=== PATIENT | female | born 1960 | race Caucasian/White ===

== ENCOUNTER 2017-10-01 11:26 | Inpatient (IN) | payer OTHER ==
[~2017-10-01] VITALS: Ht 165.1 cm; Wt 84.4 kg
[2017-10-01 13:16] LABS: BASOPHILS % 0.8 % (0.0-2.0); EOSINOPHILS % 1.2 % (0.0-5.0); HEMOGLOBIN. 10.7 g/dL (12.0-16.0); LYMPHOCYTES % 21.9 % (20.0-50.0); MEAN CORPUSCULAR HEMOGLOBIN 27.6 pg (28.0-32.0); MEAN CORPUSCULAR VOLUME 84.8 fL (81.0-99.0); MEAN PLATELET VOLUME 7.5 fl (7.4-10.4); MONOCYTES % 6.7 % (2.0-8.0); NEUTROPHILS % 69.4 % (40.0-76.0); PLATELET 454 x1000/uL (130-400); RED BLOOD CELL COUNT 3.89 mill/uL (4.2-5.4); RED CELL DISTRIBUTION WIDTH 13.4 % (11.6-14.6)
[2017-10-01 13:23] LABS: CHLORIDE 103 mEq/L (98-107)
[2017-10-01 13:24] LABS: INR 1.1; PROTHROMBIN TIME 11.2 sec (9.4-11.6)
[2017-10-01 13:31] LABS: CARBON DIOXIDE 26 mEq/L (21-32)
[2017-10-01 14:23] LABS: CLARITY URINE CLOUDY (CLEAR); COLOR URINE YELLOW (YELLOW); GLUCOSE URINE NEGATIVE (NEGATIVE); KETONES URINE 1+ (NEGATIVE); LEUKOCYTE ESTERASE URINE TRACE (NEGATIVE); NITRITE URINE NEGATIVE (NEGATIVE); OCCULT BLOOD URINE 3+ (NEGATIVE); PH URINE 5.5 (4.5-8.0); PROTEIN URINE 1+ (NEGATIVE); SPECIFIC GRAVITY URINE 1.026 (1.005-1.030)
[2017-10-01] MEDS ORDERED: CLONIDINE 0.1MG TABLET PO PRN (16:00)
[2017-10-01] MEDS ORDERED: LORAZEPAM 2MG/ML CPJ IV PRN (16:00)
[2017-10-01] MEDS ORDERED: HYDROCODONE/ACETAMINOPHEN 5/325MG TABLET PO PRN (16:00)
[2017-10-01] MEDS ORDERED: MORPHINE SULFATE 4 MG/ML CPJ (NOT FOR IM USE) IV PRN (16:00)
[2017-10-01] MEDS ORDERED: ONDANSETRON HCL 4MG/2ML VIAL IV PRN (16:00)
[2017-10-01] MEDS ORDERED: IOHEXOL-300 100 ML BOTTLE ONE (16:04)
[2017-10-01 17:35] LABS: *AMPHETAMINES SCREEN URINE NEGATIVE (NEGATIVE); *BARBITURATES SCREEN URINE NEGATIVE (NEGATIVE); *BENZODIAZEPINES SCREEN URINE NEGATIVE (NEGATIVE); *COCAINE SCREEN URINE NEGATIVE (NEGATIVE); CANNABINOID URINE SCREEN NEGATIVE (NEGATIVE); METHADONE URINE SCREEN NEGATIVE (NEGATIVE); OPIATES URINE SCREEN NEGATIVE (NEGATIVE); PHENCYCLIDINE URINE SCREEN NEGATIVE (NEGATIVE)
[2017-10-01 23:04] VITALS: BP 132/72
[2017-10-01 23:12] VITALS: BP 132/72
[2017-10-02] VITALS: BP 126/75
[2017-10-02 04:00] VITALS: BP 144/78
[2017-10-02 08:00] VITALS: BP 121/90
[2017-10-02] MEDS: THIAMINE HCL 100MG TABLET PO SCH (08:09)
[2017-10-02] MEDS: FERROUS SULFATE 325MG TABLET PO SCH (08:09)
[2017-10-02] MEDS: CEFTRIAXONE 1 G PREMIX 50 ML IV SCH (11:48)
[2017-10-02 12:00] VITALS: BP 112/77
[2017-10-02 12:46] LABS: BASOPHILS % 0.3 % (0.0-2.0); EOSINOPHILS % 0.4 % (0.0-5.0); HEMATOCRIT. 33.8 % (36.0-48.0); HEMOGLOBIN. 11.2 g/dL (12.0-16.0); LYMPHOCYTES % 11.3 % (20.0-50.0); MEAN CORPUSCULAR HEMOGLOBIN 27.8 pg (28.0-32.0); MEAN CORPUSCULAR VOLUME 84.1 fL (81.0-99.0); MONOCYTES % 8.4 % (2.0-8.0); NEUTROPHILS % 79.6 % (40.0-76.0); PLATELET 482 x1000/uL (130-400); RED BLOOD CELL COUNT 4.02 mill/uL (4.2-5.4); RED CELL DISTRIBUTION WIDTH 13.5 % (11.6-14.6)
[2017-10-02 13:05] LABS: CARBON DIOXIDE 28 mEq/L (21-32); CHLORIDE 101 mEq/L (98-107)
[2017-10-02] MEDS ORDERED: LIDOCAINE HCL 1% 20ML VIAL (Pyxis) INJ ONE (14:50)
[2017-10-02] MEDS ORDERED: SODIUM BICARBONATE 4% (2.4MEQ) 5ML VIAL IV ONE (14:51)
[2017-10-02 16:00] VITALS: BP 137/78
[2017-10-02 20:00] VITALS: BP 109/72
[2017-10-03] VITALS: BP 112/68
[2017-10-03 04:00] VITALS: BP 105/65
[2017-10-03 07:32] VITALS: BP 113/68
[2017-10-03 07:51] LABS: BASOPHILS % 0.4 % (0.0-2.0); EOSINOPHILS % 1.6 % (0.0-5.0); HEMATOCRIT. 35.4 % (36.0-48.0); HEMOGLOBIN. 11.6 g/dL (12.0-16.0); LYMPHOCYTES % 18.8 % (20.0-50.0); MEAN CORPUSCULAR HEMOGLOBIN 27.4 pg (28.0-32.0); MEAN CORPUSCULAR VOLUME 83.9 fL (81.0-99.0); MEAN PLATELET VOLUME 8.1 fl (7.4-10.4); NEUTROPHILS % 71.2 % (40.0-76.0); PLATELET 486 x1000/uL (130-400); RED BLOOD CELL COUNT 4.22 mill/uL (4.2-5.4); RED CELL DISTRIBUTION WIDTH 13.7 % (11.6-14.6)
[2017-10-03] MEDS: FERROUS SULFATE 325MG TABLET PO SCH (08:21)
[2017-10-03] MEDS: THIAMINE HCL 100MG TABLET PO SCH (08:21)
[2017-10-03 08:32] LABS: CHLORIDE 104 mEq/L (98-107)
[2017-10-03 09:01] LABS: CARBON DIOXIDE 23 mEq/L (21-32); PHOSPHORUS 3.4 mg/dL (2.5-4.9)
[2017-10-03] MEDS: CEFTRIAXONE 1 G PREMIX 50 ML IV SCH (12:05)
[2017-10-03 12:13] VITALS: BP 119/80
[2017-10-03 19:06] VITALS: BP 119/80
== END 2017-10-03 19:40 | disposition home or self-care (01) | DRG 755 ==
LOC: ER 13:42 → 6EST 15:44 → ENRESERV 18:49 → SUPCPDRO 19:11 → 8WST 22:30
PROVIDERS: ADMIT Internal Medicine Nephrology; ATTEND Internal Medicine Nephrology
PROC: 0W9G3ZZ Drainage of Peritoneal Cavity, Percutaneous Approach (ICD-10-PCS; principal; 2017-10-02)
PROC: 0W9B30Z Drainage of Left Pleural Cavity with Drainage Device, Percutaneous Approach (ICD-10-PCS; 2017-10-03)
DX: C56.1 Malignant neoplasm of right ovary (principal); N39.0 Urinary tract infection, site not specified; J90 Pleural effusion, not elsewhere classified; C78.7 Secondary malignant neoplasm of liver and intrahepatic bile duct; E27.8 Other specified disorders of adrenal gland; R18.8 Other ascites; E44.1 Mild protein-calorie malnutrition; J98.11 Atelectasis; D64.9 Anemia, unspecified; N83.9 Noninflammatory disorder of ovary, fallopian tube and broad ligament, unspecified; M19.90 Unspecified osteoarthritis, unspecified site; R14.0 Abdominal distension (gaseous); Z68.31 Body mass index [BMI] 31.0-31.9, adult
CPT/HCPCS: 32555; 36415; 49083; 71010; 74177; 80048; 80053; 80305; 81001; 83605; 83690; 83735; 84100; 85025; 85610; 86304; 87070; 87205; 88108; 88312; 99285; J0696; J3490; J7040; Q9967

== ENCOUNTER 2018-12-21 16:10 | Emergency (ER) | payer OTHER ==
[~2018-12-21] VITALS: Ht 165.1 cm; Wt 75.5 kg
[2018-12-21] MEDS ORDERED: TRAMADOL 50MG TABLET PO ONE (19:30)
[2018-12-21 21:35] VITALS: BP 141/79
== END 2018-12-21 21:49 | disposition home or self-care (01) ==
LOC: ER 16:10
DX: M79.652 Pain in left thigh (principal); Z85.43 Personal history of malignant neoplasm of ovary
CPT/HCPCS: 73502; 93971; 99284

== ENCOUNTER 2019-03-19 14:52 | Inpatient (IN) | payer OTHER ==
[~2019-03-19] VITALS: Ht 162.6 cm; Wt 81.6 kg
[2019-03-19] VITALS (29 sets, daily range): BP systolic 87–132; BP diastolic 50–88
[2019-03-19] MEDS ORDERED: SODIUM CHLORIDE 0.9% 1,000 ML IV ONE (15:01)
[2019-03-19 15:18] LABS: BG CARBOXYHEMOGLOBIN 0.3 % (0.5-1.5); BG HCO3 ACT 14.3 mmol/L (22.0-26.0); BG METHEMOGLOBIN 0.6 % (0.0-1.5); BG OXYHEMOGLOBIN 97.1 % (94.0-97.0); BG PCO2 17.7 mmHg (35.0-45.0); BG PH 7.525 (7.350-7.450); BG PO2 110.7 mmHg (75.0-100.0); BG SAMPLE SITE RIGHT RADIAL; BG VENT MODE ROOM AIR
[2019-03-19 15:25] LABS: CHLORIDE 103 mEq/L (98-107)
[2019-03-19 15:27] LABS: BASOPHILS % 0.2 % (0.0-2.0); LYMPHOCYTES % 71.4 % (20.0-50.0); MEAN CORPUSCULAR HEMOGLOBIN 31.4 pg (28.0-32.0); MEAN CORPUSCULAR VOLUME 97.6 fL (81.0-99.0); MEAN PLATELET VOLUME 9.7 fl (7.4-10.4); MONOCYTES % 1.3 % (2.0-8.0); NEUTROPHILS % 27.1 % (40.0-76.0); RED CELL DISTRIBUTION WIDTH 21.4 % (11.6-14.6)
[2019-03-19 15:28] LABS: INR 1.2; PROTHROMBIN TIME 12.1 sec (9.6-11.0)
[2019-03-19 15:32] LABS: HEMATOCRIT. 14.7 % (36.0-48.0); HEMOGLOBIN. 4.7 g/dL (12.0-16.0)
[2019-03-19 16:06] LABS: PLATELET 7 x1000/uL (130-400)
[2019-03-19] MEDS ORDERED: ACETAMINOPHEN 325MG SUPP PR ONE (16:26)
[2019-03-19] MEDS ORDERED: DIPHENHYDRAMINE 50MG/ML VIAL IV ONE (16:26)
[2019-03-19] MEDS ORDERED: IPRATROPIUM/ALBUTEROL 0.5-3(2.5)MG/3ML NEB HHN PRN (17:00)
[2019-03-19] MEDS ORDERED: CLONIDINE 0.1MG TABLET PO PRN (17:45)
[2019-03-19] MEDS ORDERED: DOCUSATE SODIUM 100MG CAPSULE PO PRN (17:45)
[2019-03-19] MEDS ORDERED: GUAIFENESIN 200MG/10ML SUGAR FREE UDC PO PRN (17:45)
[2019-03-19] MEDS ORDERED: MAGNESIUM/ALUMINUM HYDROXIDE/SIMETHICONE 30ML UDC PO PRN (17:45)
[2019-03-19 17:46] LABS: D-DIMER 5.22 mg/L FEU (<0.50)
[2019-03-19] MEDS ORDERED: ACETAMINOPHEN 325MG SUPP PR NR ×2 (18:15→22:15)
[2019-03-19 18:38] LABS: PHOSPHORUS 4.2 mg/dL (2.5-4.9)
[2019-03-19] MEDS ORDERED: DEXTROSE 50% WATER 50ML SYRINGE IV PRN (19:15)
[2019-03-19] MEDS ORDERED: PHENYLEPHRINE HCL 1% 15 ML NASAL SPRAY BOTHNSTRLS PRN (20:00)
[2019-03-19] MEDS: INSULIN LISPRO 100 UNITS/ML SUBCUT SCH (21:00)
[2019-03-19] MEDS: BLOOD SUGAR DIAGNOSTIC STRIP TEST SCH (21:01)
[2019-03-19] MEDS: PANTOPRAZOLE SODIUM 40 MG/VIAL IV SCH (21:02)
[2019-03-19] MEDS: METRONIDAZOLE 500 MG PREMIX 100 ML IV SCH (21:41)
[2019-03-19] MEDS ORDERED: ACETAMINOPHEN 650MG SUPP PR NR (22:00)
[2019-03-19] MEDS: DIPHENHYDRAMINE 50MG/ML VIAL IV PRN (23:07)
[2019-03-19] MEDS: MAGIC MOUTHWASH PO SCH (23:51)
[2019-03-20] VITALS (103 sets, daily range): BP systolic 48–125; BP diastolic 33–88
[2019-03-20] MEDS ORDERED: NON FORMULARY PATIENT HOME MED PO SCH
[2019-03-20 02:15] LABS: MEAN CORPUSCULAR HEMOGLOBIN 30.5 pg (28.0-32.0); MEAN CORPUSCULAR VOLUME 88.4 fL (81.0-99.0); MEAN PLATELET VOLUME 6.7 fl (7.4-10.4); PLATELET 62 x1000/uL (130-400); RED BLOOD CELL COUNT 2.08 mill/uL (4.2-5.4); RED CELL DISTRIBUTION WIDTH 16.5 % (11.6-14.6)
[2019-03-20 02:23] LABS: HEMATOCRIT. 18.4 % (36.0-48.0); HEMOGLOBIN. 6.4 g/dL (12.0-16.0)
[2019-03-20 04:39] LABS: PLATELET ESTIMATE DECREASED
[2019-03-20] MEDS: METRONIDAZOLE 500 MG PREMIX 100 ML IV SCH ×3 (04:40→21:47)
[2019-03-20] MEDS: DIPHENHYDRAMINE 50MG/ML VIAL IV PRN ×3 (04:40→22:08)
[2019-03-20] MEDS: MAGIC MOUTHWASH PO SCH ×3 (05:03→18:24)
[2019-03-20] MEDS: INSULIN LISPRO 100 UNITS/ML SUBCUT SCH ×4 (05:47→21:00)
[2019-03-20] MEDS: BLOOD SUGAR DIAGNOSTIC STRIP TEST SCH ×4 (05:47→21:00)
[2019-03-20 05:55] LABS: MEAN CORPUSCULAR HEMOGLOBIN 30.4 pg (28.0-32.0); MEAN CORPUSCULAR VOLUME 89.3 fL (81.0-99.0); MEAN PLATELET VOLUME 7.6 fl (7.4-10.4); PLATELET 62 x1000/uL (130-400); RED BLOOD CELL COUNT 2.01 mill/uL (4.2-5.4); RED CELL DISTRIBUTION WIDTH 16.4 % (11.6-14.6)
[2019-03-20 06:04] LABS: INR 1.1; PROTHROMBIN TIME 10.9 sec (9.6-11.0)
[2019-03-20 06:11] LABS: CHLORIDE 108 mEq/L (98-107)
[2019-03-20 06:20] LABS: HDL CHOLESTEROL 28 mg/dL (40-59); LDL CHOLESTEROL 70 mg/dL (5-100)
[2019-03-20 06:23] LABS: HEMOGLOBIN. 6.1 g/dL (12.0-16.0)
[2019-03-20 07:32] LABS: PLATELET ESTIMATE DECREASED
[2019-03-20] MEDS: PANTOPRAZOLE SODIUM 40 MG/VIAL IV SCH ×2 (08:46→21:00)
[2019-03-20 09:23] LABS: HEMATOCRIT. 23.8 % (36.0-48.0); HEMOGLOBIN. 7.9 g/dL (12.0-16.0); MEAN CORPUSCULAR HEMOGLOBIN 28.2 pg (28.0-32.0); MEAN CORPUSCULAR VOLUME 84.7 fL (81.0-99.0); MEAN PLATELET VOLUME 7.4 fl (7.4-10.4); RED BLOOD CELL COUNT 2.81 mill/uL (4.2-5.4); RED CELL DISTRIBUTION WIDTH 18.1 % (11.6-14.6)
[2019-03-20 09:29] LABS: PLATELET 48 x1000/uL (130-400)
[2019-03-20 09:42] LABS: PLATELET ESTIMATE MARKEDLY DECREASED
[2019-03-20] MEDS ORDERED: ONDA4TAB5 MT (10:12)
[2019-03-20 10:25] LABS: PLATELET ESTIMATE MARKEDLY DECREASED
[2019-03-20] MEDS ORDERED: MULTIVITAMINS,THER W-MINERALS TABLET PO SCH ×2 (11:15→12:00)
[2019-03-20] MEDS ORDERED: FOLIC ACID 1MG TABLET PO SCH ×2 (11:15→12:00)
[2019-03-20] MEDS ORDERED: ZINC SULFATE 220 MG ( 50 ) CAPSULE PO SCH (11:15)
[2019-03-20] MEDS ORDERED: THIAMINE HCL 100MG TABLET PO SCH (12:00)
[2019-03-20] MEDS: ZINC SULFATE 220 MG ( 50 ) CAPSULE PO SCH (12:36)
[2019-03-20] MEDS: ONDANSETRON HCL 4MG/2ML INJ IV PRN (12:49)
[2019-03-20] MEDS: ACETAMINOPHEN 650MG/20.3ML UDC PO PRN ×2 (14:58→22:08)
[2019-03-20 20:32] LABS: HEMATOCRIT 17.7 % (36.0-48.0)
[2019-03-21] VITALS (86 sets, daily range): BP systolic 101–154; BP diastolic 50–135
[2019-03-21] MEDS: MAGIC MOUTHWASH PO SCH ×4 (00:14→17:30)
[2019-03-21] MEDS: METRONIDAZOLE 500 MG PREMIX 100 ML IV SCH ×3 (05:38→21:51)
[2019-03-21 06:09] LABS: HEMATOCRIT. 21.4 % (36.0-48.0); HEMOGLOBIN. 7.4 g/dL (12.0-16.0); MEAN CORPUSCULAR HEMOGLOBIN 30.2 pg (28.0-32.0); MEAN PLATELET VOLUME 7.7 fl (7.4-10.4); PLATELET 65 x1000/uL (130-400); RED BLOOD CELL COUNT 2.46 mill/uL (4.2-5.4); RED CELL DISTRIBUTION WIDTH 16.5 % (11.6-14.6)
[2019-03-21] MEDS: BLOOD SUGAR DIAGNOSTIC STRIP TEST SCH ×4 (06:18→20:47)
[2019-03-21] MEDS: INSULIN LISPRO 100 UNITS/ML SUBCUT SCH ×4 (06:18→20:47)
[2019-03-21 07:58] LABS: PLATELET ESTIMATE DECREASED
[2019-03-21] MEDS: PANTOPRAZOLE SODIUM 40 MG/VIAL IV SCH (08:40)
[2019-03-21] MEDS: ZINC SULFATE 220 MG ( 50 ) CAPSULE PO SCH (08:40)
[2019-03-21] MEDS ORDERED: THIAMINE HCL IV SCH (09:00)
[2019-03-21] MEDS ORDERED: [UNRECOGNIZED DRUG - OTHER] IV SCH (09:00)
[2019-03-21] MEDS ORDERED: MAGNESIUM SULFATE IV SCH (09:00)
[2019-03-21] MEDS ORDERED: FOLIC ACID IV SCH (09:00)
[2019-03-21] MEDS ORDERED: [UNRECOGNIZED DRUG - REMARK] IV SCH ×5 (09:15)
[2019-03-21] MEDS: [UNRECOGNIZED DRUG - REMARK] IV SCH ×5 (09:53)
[2019-03-21] MEDS: SODIUM CHLORIDE 0.9% 1,000 ML IV SCH (13:18)
[2019-03-21 16:06] LABS: MEAN CORPUSCULAR HEMOGLOBIN 29.7 pg (28.0-32.0); MEAN CORPUSCULAR VOLUME 86.5 fL (81.0-99.0); RED BLOOD CELL COUNT 2.22 mill/uL (4.2-5.4); RED CELL DISTRIBUTION WIDTH 16.4 % (11.6-14.6)
[2019-03-21 16:15] LABS: HEMOGLOBIN 6.6 g/dL (12.0-16.0)
[2019-03-21 16:16] LABS: HEMATOCRIT 19.2 % (36.0-48.0); PLATELET 48 x1000/uL (130-400)
[2019-03-21] MEDS: DIPHENHYDRAMINE 50MG/ML VIAL IV PRN (17:35)
[2019-03-21] MEDS: ACETAMINOPHEN 650MG/20.3ML UDC PO PRN (17:35)
[2019-03-21] MEDS: FILGRASTIM-TBO 480 MCG/0.8 ML SYRINGE SQ SCH (21:51)
[2019-03-21 22:43] LABS: HEMATOCRIT 24.6 % (36.0-48.0); HEMOGLOBIN 8.4 g/dL (12.0-16.0); MEAN CORPUSCULAR HEMOGLOBIN 30.2 pg (28.0-32.0); MEAN CORPUSCULAR VOLUME 88.3 fL (81.0-99.0); RED BLOOD CELL COUNT 2.78 mill/uL (4.2-5.4); RED CELL DISTRIBUTION WIDTH 15.6 % (11.6-14.6)
[2019-03-21 22:45] LABS: PLATELET 45 x1000/uL (130-400)
[2019-03-22] VITALS (86 sets, daily range): BP systolic 89–144; BP diastolic 43–96
[2019-03-22] MEDS: MAGIC MOUTHWASH PO SCH ×4 (00:07→17:35)
[2019-03-22] MEDS: METRONIDAZOLE 500 MG PREMIX 100 ML IV SCH ×3 (06:02→22:48)
[2019-03-22] MEDS: SODIUM CHLORIDE 0.9% 1,000 ML IV SCH ×2 (06:02→20:06)
[2019-03-22] MEDS: INSULIN LISPRO 100 UNITS/ML SUBCUT SCH ×4 (06:03→21:00)
[2019-03-22] MEDS: BLOOD SUGAR DIAGNOSTIC STRIP TEST SCH ×4 (06:03→21:00)
[2019-03-22 06:38] LABS: HEMATOCRIT. 22.5 % (36.0-48.0); HEMOGLOBIN. 7.7 g/dL (12.0-16.0); MEAN CORPUSCULAR HEMOGLOBIN 29.9 pg (28.0-32.0); MEAN CORPUSCULAR VOLUME 87.2 fL (81.0-99.0); MEAN PLATELET VOLUME 8.3 fl (7.4-10.4); PLATELET 89 x1000/uL (130-400); RED BLOOD CELL COUNT 2.58 mill/uL (4.2-5.4); RED CELL DISTRIBUTION WIDTH 15.3 % (11.6-14.6)
[2019-03-22 06:41] LABS: PARTIAL THROMBOPLASTIN TIME 24.9 sec (23.4-31.0); PROTHROMBIN TIME 10.7 sec (9.6-11.0)
[2019-03-22 07:07] LABS: CHLORIDE 110 mEq/L (98-107)
[2019-03-22 07:18] LABS: T4 FREE 1.56 ng/dL (0.76-1.46)
[2019-03-22] MEDS ORDERED: LIDOCAINE HCL 1% 20ML VIAL (Pyxis) INJ ONE (07:21)
[2019-03-22] MEDS ORDERED: SODIUM BICARBONATE 4% (2.4MEQ) 5ML VIAL IV ONE (07:21)
[2019-03-22] MEDS ORDERED: IOHEXOL-300 100 ML BOTTLE ONE (07:22)
[2019-03-22 08:37] LABS: NUCLEATED RED BLOOD CELLS 2 /100 WBC
[2019-03-22 08:38] LABS: PLATELET ESTIMATE DECREASED
[2019-03-22] MEDS ORDERED: POTASSIUM CHLORIDE 20MEQ TABLET SR PO NR (08:45)
[2019-03-22] MEDS ORDERED: FENTANYL CITRATE/PF 50MCG/ML 2ML VIAL ONE (09:18)
[2019-03-22] MEDS ORDERED: FENTANYL CITRATE/PF 50MCG/ML 2ML VIAL IV ONE (09:45)
[2019-03-22 10:42] LABS: CLARITY URINE CLEAR (CLEAR); COLOR URINE YELLOW (YELLOW); KETONES URINE NEGATIVE (NEGATIVE); LEUKOCYTE ESTERASE URINE NEGATIVE (NEGATIVE); NITRITE URINE NEGATIVE (NEGATIVE); OCCULT BLOOD URINE NEGATIVE (NEGATIVE); PH URINE 5.5 (4.5-8.0); PROTEIN URINE NEGATIVE (NEGATIVE); SPECIFIC GRAVITY URINE 1.022 (1.005-1.030); UROBILINOGEN URINE 0.2 E.U./dL (0.2-1.0)
[2019-03-22] MEDS: ZINC SULFATE 220 MG ( 50 ) CAPSULE PO SCH (10:47)
[2019-03-22] MEDS: [UNRECOGNIZED DRUG - REMARK] IV SCH ×5 (10:48)
[2019-03-22] MEDS: ACETAMINOPHEN 650MG/20.3ML UDC PO PRN (10:58)
[2019-03-22] MEDS: HYDROMORPHONE HCL/PF 2MG/ML CPJ IV PRN ×3 (11:29→23:40)
[2019-03-22] MEDS ORDERED: POTASSIUM CHLORIDE INJ 40 MEQ in DEXT 5% WATER 250 ML IV NR (12:45)
[2019-03-22] MEDS: DIPHENHYDRAMINE 50MG/ML VIAL IV PRN (13:48)
[2019-03-22] MEDS: ONDANSETRON HCL 4MG/2ML INJ IV PRN ×2 (14:02→20:06)
[2019-03-22] MEDS: FILGRASTIM-TBO 480 MCG/0.8 ML SYRINGE SQ SCH (20:07)
[2019-03-23] VITALS (82 sets, daily range): BP systolic 96–142; BP diastolic 33–89
[2019-03-23] MEDS: MAGIC MOUTHWASH PO SCH ×4 (00:11→17:30)
[2019-03-23] MEDS: HYDROMORPHONE HCL/PF 2MG/ML CPJ IV PRN ×4 (02:03→17:31)
[2019-03-23] MEDS: ONDANSETRON HCL 4MG/2ML INJ IV PRN ×3 (02:04→17:31)
[2019-03-23 05:12] LABS: HEMATOCRIT. 22.4 % (36.0-48.0); HEMOGLOBIN. 7.7 g/dL (12.0-16.0); MEAN CORPUSCULAR HEMOGLOBIN 30.3 pg (28.0-32.0); MEAN CORPUSCULAR VOLUME 88.4 fL (81.0-99.0); MEAN PLATELET VOLUME 8.1 fl (7.4-10.4); PLATELET 60 x1000/uL (130-400); RED BLOOD CELL COUNT 2.53 mill/uL (4.2-5.4); RED CELL DISTRIBUTION WIDTH 15.4 % (11.6-14.6)
[2019-03-23 05:47] LABS: CHLORIDE 113 mEq/L (98-107)
[2019-03-23] MEDS: METRONIDAZOLE 500 MG PREMIX 100 ML IV SCH (05:53)
[2019-03-23 05:56] LABS: PHOSPHORUS 2.3 mg/dL (2.5-4.9)
[2019-03-23] MEDS: INSULIN LISPRO 100 UNITS/ML SUBCUT SCH ×4 (06:46→21:00)
[2019-03-23] MEDS: BLOOD SUGAR DIAGNOSTIC STRIP TEST SCH ×4 (06:46→21:13)
[2019-03-23] MEDS: [UNRECOGNIZED DRUG - REMARK] IV SCH ×5 (09:09)
[2019-03-23] MEDS: ZINC SULFATE 220 MG ( 50 ) CAPSULE PO SCH (09:09)
[2019-03-23] MEDS ORDERED: POTASSIUM-SODIUM PHOSPHATE POWDER PACKET PO NR (11:30)
[2019-03-23 12:05] LABS: PLATELET ESTIMATE DECREASED
[2019-03-23] MEDS: DIPHENHYDRAMINE 50MG/ML VIAL IV PRN ×2 (12:19→17:32)
[2019-03-23] MEDS ORDERED: SODIUM BICARBONATE 4% (2.4MEQ) 5ML VIAL IV ONE (13:15)
[2019-03-23] MEDS: [UNRECOGNIZED DRUG - REMARK] IV SCH ×5 (15:48)
[2019-03-23] MEDS: FILGRASTIM-TBO 480 MCG/0.8 ML SYRINGE SQ SCH (21:13)
[2019-03-24] VITALS (102 sets, daily range): BP systolic 92–159; BP diastolic 50–98
[2019-03-24] MEDS: HYDROMORPHONE HCL/PF 2MG/ML CPJ IV PRN ×4 (00:02→23:38)
[2019-03-24] MEDS: ONDANSETRON HCL 4MG/2ML INJ IV PRN ×4 (00:03→23:36)
[2019-03-24] MEDS: MAGIC MOUTHWASH PO SCH ×4 (02:52→18:54)
[2019-03-24 05:37] LABS: MEAN CORPUSCULAR HEMOGLOBIN 29.9 pg (28.0-32.0); MEAN CORPUSCULAR VOLUME 89.3 fL (81.0-99.0); MEAN PLATELET VOLUME 8.6 fl (7.4-10.4); RED BLOOD CELL COUNT 2.29 mill/uL (4.2-5.4); RED CELL DISTRIBUTION WIDTH 15.2 % (11.6-14.6)
[2019-03-24 05:45] LABS: CHLORIDE 110 mEq/L (98-107)
[2019-03-24 05:52] LABS: PHOSPHORUS 1.9 mg/dL (2.5-4.9)
[2019-03-24] MEDS: BLOOD SUGAR DIAGNOSTIC STRIP TEST SCH ×4 (06:13→20:43)
[2019-03-24] MEDS: INSULIN LISPRO 100 UNITS/ML SUBCUT SCH ×4 (06:13→20:50)
[2019-03-24 06:28] LABS: HEMATOCRIT. 20.4 % (36.0-48.0); HEMOGLOBIN. 6.8 g/dL (12.0-16.0)
[2019-03-24] MEDS ORDERED: KCL 20MEQ/100ML PREMIX 100 ML IV NR (08:00)
[2019-03-24] MEDS: ZINC SULFATE 220 MG ( 50 ) CAPSULE PO SCH (08:56)
[2019-03-24] MEDS: [UNRECOGNIZED DRUG - REMARK] IV SCH ×5 (08:56)
[2019-03-24] MEDS ORDERED: POTASSIUM CHLORIDE 20MEQ TABLET SR PO NR (09:30)
[2019-03-24] MEDS ORDERED: POTASSIUM PHOS,M-BASIC-D-BASIC 30 MMOL in DEXT 5% WATER 500 ML IV NR (11:00)
[2019-03-24] MEDS ORDERED: KCL 20MEQ/100ML PREMIX 100 ML IV ONE ×2 (11:00→14:00)
[2019-03-24 11:06] LABS: PLATELET ESTIMATE MARKEDLY DECREASED
[2019-03-24 11:07] LABS: PLATELET 37 x1000/uL (130-400)
[2019-03-24] MEDS: DIPHENHYDRAMINE 50MG/ML VIAL IV PRN ×2 (11:28→14:26)
[2019-03-24] MEDS ORDERED: POLYETHYLENE GLYCOL 3350 (17GM) 1 DOSE PACK PO SCH (14:00)
[2019-03-24] MEDS: ACETAMINOPHEN 650MG/20.3ML UDC PO PRN (14:25)
[2019-03-24] MEDS: [UNRECOGNIZED DRUG - REMARK] IV SCH ×5 (18:53)
[2019-03-24] MEDS: FILGRASTIM-TBO 480 MCG/0.8 ML SYRINGE SQ SCH (20:30)
[2019-03-25] VITALS (18 sets, daily range): BP systolic 86–119; BP diastolic 53–84
[2019-03-25] MEDS: MAGIC MOUTHWASH PO SCH ×6 (00:29→21:48)
[2019-03-25] MEDS: HYDROMORPHONE HCL/PF 2MG/ML CPJ IV PRN ×2 (05:03→21:00)
[2019-03-25] MEDS: BLOOD SUGAR DIAGNOSTIC STRIP TEST SCH ×4 (06:14→20:59)
[2019-03-25] MEDS: INSULIN LISPRO 100 UNITS/ML SUBCUT SCH ×4 (07:20→20:59)
[2019-03-25 07:42] LABS: CHLORIDE 103 mEq/L (98-107)
[2019-03-25 07:56] LABS: PHOSPHORUS 2.6 mg/dL (2.5-4.9)
[2019-03-25 07:57] LABS: HEMATOCRIT. 27.5 % (36.0-48.0); MEAN CORPUSCULAR HEMOGLOBIN 29.9 pg (28.0-32.0); MEAN CORPUSCULAR VOLUME 86.8 fL (81.0-99.0); MEAN PLATELET VOLUME 8.2 fl (7.4-10.4); PLATELET 70 x1000/uL (130-400); RED BLOOD CELL COUNT 3.17 mill/uL (4.2-5.4); RED CELL DISTRIBUTION WIDTH 16.1 % (11.6-14.6)
[2019-03-25 08:01] LABS: HEMOGLOBIN. 9.5 g/dL (12.0-16.0)
[2019-03-25] MEDS: ZINC SULFATE 220 MG ( 50 ) CAPSULE PO SCH (08:44)
[2019-03-25 09:49] LABS: PLATELET ESTIMATE DECREASED
[2019-03-25] MEDS: [UNRECOGNIZED DRUG - REMARK] IV SCH ×5 (17:51)
[2019-03-25] MEDS ORDERED: FILGRASTIM-TBO 300 MCG/0.5 ML SYRINGE SQ SCH (21:00)
[2019-03-26] VITALS (21 sets, daily range): BP systolic 84–116; BP diastolic 44–90
[2019-03-26] MEDS: MAGIC MOUTHWASH PO SCH ×3 (04:32→17:22)
[2019-03-26] MEDS: HYDROMORPHONE HCL/PF 2MG/ML CPJ IV PRN (05:28)
[2019-03-26] MEDS: INSULIN LISPRO 100 UNITS/ML SUBCUT SCH ×4 (06:35→20:52)
[2019-03-26] MEDS: BLOOD SUGAR DIAGNOSTIC STRIP TEST SCH ×4 (06:35→20:41)
[2019-03-26 06:49] LABS: HEMATOCRIT. 26.1 % (36.0-48.0); HEMOGLOBIN. 8.6 g/dL (12.0-16.0); MEAN CORPUSCULAR VOLUME 88.1 fL (81.0-99.0); MEAN PLATELET VOLUME 8.5 fl (7.4-10.4); RED BLOOD CELL COUNT 2.96 mill/uL (4.2-5.4); RED CELL DISTRIBUTION WIDTH 15.9 % (11.6-14.6)
[2019-03-26] MEDS: [UNRECOGNIZED DRUG - REMARK] IV SCH ×10 (07:00→16:05)
[2019-03-26 07:11] LABS: PLATELET 42 x1000/uL (130-400)
[2019-03-26 07:31] LABS: CHLORIDE 101 mEq/L (98-107)
[2019-03-26 07:38] LABS: PHOSPHORUS 2.8 mg/dL (2.5-4.9)
[2019-03-26] MEDS: ZINC SULFATE 220 MG ( 50 ) CAPSULE PO SCH (07:48)
[2019-03-26 11:41] LABS: PLATELET ESTIMATE MARKEDLY DECREASED
[2019-03-26] MEDS: ONDANSETRON HCL 4MG/2ML INJ IV PRN (13:42)
[2019-03-26] MEDS: MIDODRINE HCL 5MG TABLET PO SCH ×2 (13:44→20:44)
[2019-03-27] VITALS (19 sets, daily range): BP systolic 86–122; BP diastolic 62–81
[2019-03-27] MEDS: MAGIC MOUTHWASH PO SCH ×4 (04:04→18:00)
[2019-03-27] MEDS: INSULIN LISPRO 100 UNITS/ML SUBCUT SCH ×3 (06:12→17:20)
[2019-03-27] MEDS: BLOOD SUGAR DIAGNOSTIC STRIP TEST SCH ×3 (06:12→16:50)
[2019-03-27 06:18] LABS: CHLORIDE 101 mEq/L (98-107)
[2019-03-27 06:19] LABS: HEMATOCRIT. 23.9 % (36.0-48.0); HEMOGLOBIN. 7.9 g/dL (12.0-16.0); MEAN CORPUSCULAR HEMOGLOBIN 29.3 pg (28.0-32.0); MEAN CORPUSCULAR VOLUME 88.3 fL (81.0-99.0); MEAN PLATELET VOLUME 9.7 fl (7.4-10.4); RED BLOOD CELL COUNT 2.71 mill/uL (4.2-5.4); RED CELL DISTRIBUTION WIDTH 15.7 % (11.6-14.6)
[2019-03-27 06:38] LABS: PHOSPHORUS 3.3 mg/dL (2.5-4.9)
[2019-03-27 07:52] LABS: PLATELET 29 x1000/uL (130-400)
[2019-03-27] MEDS: MIDODRINE HCL 5MG TABLET PO SCH ×2 (08:12→20:29)
[2019-03-27] MEDS: ZINC SULFATE 220 MG ( 50 ) CAPSULE PO SCH (08:12)
[2019-03-27] MEDS ORDERED: MAGNESIUM 2 G PREMIX 50 ML IV ONE (10:15)
[2019-03-27] MEDS ORDERED: MAGNESIUM 2 G PREMIX 50 ML IV NR (11:30)
[2019-03-27] MEDS: PIPERACILLIN/TAZ 3.375G PREMIX 50 ML IV SCH ×2 (12:04→18:00)
[2019-03-27] MEDS ORDERED: VANCOMYCIN 1500MG in DEXTROSE 5% WATER 250ML IV NR (16:00)
[2019-03-27 16:51] LABS: PLATELET ESTIMATE MARKEDLY DECREASED
[2019-03-27] MEDS: ACETAMINOPHEN 650MG/20.3ML UDC PO PRN (18:45)
[2019-03-27] MEDS: DIPHENHYDRAMINE 50MG/ML VIAL IV PRN (21:50)
[2019-03-28] VITALS: BP 93/50
[2019-03-28] MEDS: PIPERACILLIN/TAZ 3.375G PREMIX 50 ML IV SCH ×4 (00:45→17:17)
[2019-03-28 04:00] VITALS: BP 103/63
[2019-03-28] MEDS ORDERED: VANCOMYCIN 1 G PREMIX 200 ML IV SCH (04:00)
[2019-03-28 06:29] LABS: HEMATOCRIT. 23.3 % (36.0-48.0); HEMOGLOBIN. 7.8 g/dL (12.0-16.0); MEAN CORPUSCULAR HEMOGLOBIN 29.5 pg (28.0-32.0); MEAN CORPUSCULAR VOLUME 88.2 fL (81.0-99.0); MEAN PLATELET VOLUME 9.3 fl (7.4-10.4); RED BLOOD CELL COUNT 2.64 mill/uL (4.2-5.4); RED CELL DISTRIBUTION WIDTH 15.7 % (11.6-14.6)
[2019-03-28] MEDS: BLOOD SUGAR DIAGNOSTIC STRIP TEST SCH ×4 (07:09→21:42)
[2019-03-28] MEDS: INSULIN LISPRO 100 UNITS/ML SUBCUT SCH ×4 (07:09→21:00)
[2019-03-28 07:12] LABS: CHLORIDE 97 mEq/L (98-107)
[2019-03-28 07:18] LABS: PHOSPHORUS 3.4 mg/dL (2.5-4.9)
[2019-03-28 07:38] LABS: PLATELET 29 x1000/uL (130-400)
[2019-03-28 08:00] VITALS: BP 106/62
[2019-03-28] MEDS: MIDODRINE HCL 5MG TABLET PO SCH ×2 (09:10→21:42)
[2019-03-28] MEDS: ZINC SULFATE 220 MG ( 50 ) CAPSULE PO SCH (09:11)
[2019-03-28] MEDS ORDERED: POTASSIUM CHLORIDE 20MEQ TABLET SR PO NR (09:15)
[2019-03-28 10:23] LABS: PLATELET ESTIMATE MARKEDLY DECREASED
[2019-03-28 12:00] VITALS: BP 101/61
[2019-03-28] MEDS: MAGIC MOUTHWASH PO SCH ×2 (13:03→17:16)
[2019-03-28] MEDS: PILOCARPINE HCL 5MG TABLET PO SCH ×2 (14:18→21:49)
[2019-03-28] MEDS: SODIUM CHLORIDE 0.9% 1,000 ML IV SCH (15:45)
[2019-03-28 16:00] VITALS: BP 98/61
[2019-03-28] MEDS ORDERED: MAGNESIUM 4 G PREMIX 100 ML IV SCH (16:00)
[2019-03-28] MEDS: VANCOMYCIN 1 G PREMIX 200 ML IV SCH (17:16)
[2019-03-28] MEDS: OMEPRAZOLE 20MG CAPSULE EXTENDED RELEASE PO SCH (18:37)
[2019-03-28 20:00] VITALS: BP 95/55
[2019-03-29] VITALS: BP 93/50
[2019-03-29] MEDS: PIPERACILLIN/TAZ 3.375G PREMIX 50 ML IV SCH ×3 (00:12→13:07)
[2019-03-29] MEDS: MAGIC MOUTHWASH PO SCH ×3 (00:20→13:08)
[2019-03-29 04:00] VITALS: BP 98/57
[2019-03-29] MEDS: VANCOMYCIN 1 G PREMIX 200 ML IV SCH (05:17)
[2019-03-29 06:06] LABS: HEMATOCRIT. 23.7 % (36.0-48.0); HEMOGLOBIN. 7.9 g/dL (12.0-16.0); MEAN CORPUSCULAR HEMOGLOBIN 29.7 pg (28.0-32.0); MEAN CORPUSCULAR VOLUME 89.4 fL (81.0-99.0); MEAN PLATELET VOLUME 9.3 fl (7.4-10.4); RED BLOOD CELL COUNT 2.65 mill/uL (4.2-5.4); RED CELL DISTRIBUTION WIDTH 15.8 % (11.6-14.6)
[2019-03-29 06:21] LABS: PLATELET 37 x1000/uL (130-400)
[2019-03-29] MEDS: BLOOD SUGAR DIAGNOSTIC STRIP TEST SCH ×2 (06:33→11:45)
[2019-03-29] MEDS: OMEPRAZOLE 20MG CAPSULE EXTENDED RELEASE PO SCH (06:34)
[2019-03-29] MEDS: INSULIN LISPRO 100 UNITS/ML SUBCUT SCH ×2 (06:34→12:15)
[2019-03-29] MEDS: MIDODRINE HCL 5MG TABLET PO SCH ×2 (06:35→09:41)
[2019-03-29] MEDS: PILOCARPINE HCL 5MG TABLET PO SCH ×2 (06:38→13:13)
[2019-03-29 06:43] LABS: CHLORIDE 98 mEq/L (98-107)
[2019-03-29 06:48] LABS: PHOSPHORUS 2.9 mg/dL (2.5-4.9)
[2019-03-29 06:52] LABS: VANCOMYCIN TROUGH 15.5 ug/mL (5.0-10.0)
[2019-03-29 08:00] VITALS: BP 96/56
[2019-03-29] MEDS ORDERED: MAGNESIUM OXIDE 400MG TABLET PO SCH (09:00)
[2019-03-29] MEDS: ZINC SULFATE 220 MG ( 50 ) CAPSULE PO SCH (09:39)
[2019-03-29 09:41] LABS: PLATELET ESTIMATE MARKEDLY DECREASED
[2019-03-29 12:00] VITALS: BP 101/63
[2019-03-29] MEDS: SODIUM CHLORIDE 0.9% 1,000 ML IV SCH (13:07)
[2019-03-29] MEDS ORDERED: OR220 PO (15:11)
[2019-03-29] MEDS ORDERED: MIDO5TAB PO (15:11)
[2019-03-29] MEDS ORDERED: PILO5TAB PO (15:11)
[2019-03-29] MEDS ORDERED: OMEP20CA10 PO (15:11)
[2019-03-29] MEDS ORDERED: DOXY100C2 MT (15:11)
[2019-03-29 16:00] VITALS: BP 105/65
[2019-03-29 18:37] VITALS: BP 105/65
== END 2019-03-29 19:30 | disposition home health service (06) | DRG 853 ==
LOC: ER 14:52 → MICUSO 16:09 → EDBEDREQTM 16:14 → EDBEDREQ 16:14 → ENRESERV 17:27 → 3WST 03-25 02:28 → 5WST 03-27 23:35
PROVIDERS: ADMIT Internal Medicine; ATTEND Internal Medicine
PROC: 0W9G3ZZ Drainage of Peritoneal Cavity, Percutaneous Approach (ICD-10-PCS; principal; 2019-03-19)
PROC: 02HV33Z Insertion of Infusion Device into Superior Vena Cava, Percutaneous Approach (ICD-10-PCS; 2019-03-19)
PROC: B548ZZA Ultrasonography of Superior Vena Cava, Guidance (ICD-10-PCS; 2019-03-19)
PROC: 04LF3ZU Occlusion of Left Uterine Artery, Percutaneous Approach (ICD-10-PCS; 2019-03-22)
PROC: 04LE3ZT Occlusion of Right Uterine Artery, Percutaneous Approach (ICD-10-PCS; 2019-03-22)
DX: A41.9 Sepsis, unspecified organism (principal); R57.8 Other shock; E43 Unspecified severe protein-calorie malnutrition; J96.00 Acute respiratory failure, unspecified whether with hypoxia or hypercapnia; R18.8 Other ascites; C78.7 Secondary malignant neoplasm of liver and intrahepatic bile duct; N17.9 Acute kidney failure, unspecified; D61.818 Other pancytopenia; C56.9 Malignant neoplasm of unspecified ovary; E03.9 Hypothyroidism, unspecified; D69.6 Thrombocytopenia, unspecified; D69.59 Other secondary thrombocytopenia; E27.8 Other specified disorders of adrenal gland; K11.20 Sialoadenitis, unspecified; N92.0 Excessive and frequent menstruation with regular cycle; R73.9 Hyperglycemia, unspecified; R74.0 Nonspecific elevation of levels of transaminase and lactic acid dehydrogenase [LDH]; E87.6 Hypokalemia; Z51.5 Encounter for palliative care; E83.39 Other disorders of phosphorus metabolism; K59.00 Constipation, unspecified; K12.30 Oral mucositis (ulcerative), unspecified; Z82.49 Family history of ischemic heart disease and other diseases of the circulatory system; Z92.21 Personal history of antineoplastic chemotherapy; N93.8 Other specified abnormal uterine and vaginal bleeding
CPT/HCPCS: 36415; 36569; 36600; 49083; 70490; 71045; 74176; 75774; 75898; 76770; 76856; 76937; 80048; 80061; 80202; 82330; 82375; 82805; 82962; 83036; 83615; 83735; 83880; 84100; 84145; 84439; 84443; 84481; 84484; 84550; 85014; 85018; 85027; 85049; 85379; 85384; 86304; 86850; 86900; 86920; 86927; 86945; 92610; 93005; 93970; 96361; 96374; 97163; 97166; 97530; 99152; 99153; 99291; A6261; C1725; C1730; C1760; C1766; C1769; C9113; J1170; J1200; J1442; J1644; J1815; J2405; J2543; J3010; J3370; J3411; J3475; J3480; J3490; J7030; J7040; J7042; J7050; J7060; P9016; P9017; P9034; Q9967; A4315; G0500

== ENCOUNTER 2019-05-24 12:00 | Inpatient (IN) | payer OTHER ==
[~2019-05-24] VITALS: Ht 165.1 cm; Wt 77.1 kg
[~2019-05-24 12:00] MED LIST: DOXY100C2 MT; MIDO5TAB PO; OMEP20CA5 PO; ONDA4TAB5 MT; OR220 PO; PILO5TAB PO
[2019-05-24] MEDS ORDERED: ONDANSETRON HCL 4MG/2ML INJ IV STA (12:53)
[2019-05-24] MEDS ORDERED: MORPHINE SULFATE 4 MG/ML CPJ (NOT FOR IM USE) IV STA (12:53)
[2019-05-24] MEDS ORDERED: SODIUM CHLORIDE 0.9% 1000ML BAG (SEPSIS BOLUS) IV ONE (13:00)
[2019-05-24 13:22] LABS: HEMATOCRIT. 27.4 % (36.0-48.0); MEAN CORPUSCULAR HEMOGLOBIN 30.8 pg (28.0-32.0); MEAN CORPUSCULAR VOLUME 93.9 fL (81.0-99.0); MEAN PLATELET VOLUME 10.4 fl (7.4-10.4); RED BLOOD CELL COUNT 2.91 mill/uL (4.2-5.4)
[2019-05-24 13:25] LABS: CHLORIDE 99 mEq/L (98-107)
[2019-05-24 13:26] LABS: PARTIAL THROMBOPLASTIN TIME 25.9 sec (23.4-31.0); PROTHROMBIN TIME 10.6 sec (9.6-11.0)
[2019-05-24 13:28] LABS: PLATELET 4 x1000/uL (130-400)
[2019-05-24 13:53] LABS: PLATELET ESTIMATE MARKEDLY DECREASED
[2019-05-24 16:19] LABS: CLARITY URINE TURBID (CLEAR); COLOR URINE RED (YELLOW); KETONES URINE NEGATIVE (NEGATIVE); LEUKOCYTE ESTERASE URINE 2+ (NEGATIVE); NITRITE URINE POSITIVE (NEGATIVE); OCCULT BLOOD URINE 3+ (NEGATIVE); PH URINE 5.5 (4.5-8.0); PROTEIN URINE 3+ (NEGATIVE); SPECIFIC GRAVITY URINE 1.028 (1.005-1.030)
[2019-05-24] MEDS ORDERED: PIPERACILLIN/TAZ 3.375G PREMIX 50 ML IV ONE (16:45)
[2019-05-24] MEDS ORDERED: DIPHENHYDRAMINE 50MG/ML VIAL IV PRN (17:45)
[2019-05-24] MEDS ORDERED: NA PHOS,M-B/NA PHOS,DI-BA ENEMA 118ML PR PRN (17:45)
[2019-05-24] MEDS ORDERED: CLONIDINE 0.1MG TABLET PO PRN (17:45)
[2019-05-24] MEDS ORDERED: DOCUSATE SODIUM 100MG CAPSULE PO PRN (17:45)
[2019-05-24] MEDS ORDERED: MAGNESIUM/ALUMINUM HYDROXIDE/SIMETHICONE 30ML UDC PO PRN (17:45)
[2019-05-24] MEDS ORDERED: ACETAMINOPHEN 650MG SUPP PR PRN (17:45)
[2019-05-24] MEDS ORDERED: GUAIFENESIN 200MG/10ML SUGAR FREE UDC PO PRN (17:45)
[2019-05-24] MEDS ORDERED: ACETAMINOPHEN 650MG/20.3ML UDC GT PRN (17:45)
[2019-05-24] MEDS ORDERED: HYDROCODONE/ACETAMINOPHEN 5/325MG TABLET PO PRN (17:45)
[2019-05-24] MEDS ORDERED: ACETAMINOPHEN 325MG TABLET PO PRN (17:45)
[2019-05-24] MEDS ORDERED: ONDANSETRON HCL 4MG/2ML INJ IV PRN (17:45)
[2019-05-24 21:34] VITALS: BP 113/72
[2019-05-24 22:00] VITALS: BP 113/72
[2019-05-24] MEDS: PIPERACILLIN/TAZ 3.375G PREMIX 50 ML IV SCH (23:44)
[2019-05-24] MEDS: SODIUM CHLORIDE 0.9% 1,000 ML IV SCH (23:44)
[2019-05-25] VITALS (13 sets, daily range): BP systolic 92–114; BP diastolic 62–74
[2019-05-25 00:13] LABS: HEMATOCRIT. 22.3 % (36.0-48.0); HEMOGLOBIN. 7.3 g/dL (12.0-16.0); MEAN CORPUSCULAR VOLUME 94.2 fL (81.0-99.0); MEAN PLATELET VOLUME 9.4 fl (7.4-10.4); RED BLOOD CELL COUNT 2.37 mill/uL (4.2-5.4)
[2019-05-25 00:21] LABS: PLATELET 34 x1000/uL (130-400)
[2019-05-25 03:46] LABS: PLATELET ESTIMATE MARKEDLY DECREASED
[2019-05-25] MEDS: PIPERACILLIN/TAZ 3.375G PREMIX 50 ML IV SCH ×3 (06:03→23:59)
[2019-05-25 06:40] LABS: HEMATOCRIT. 23.1 % (36.0-48.0); HEMOGLOBIN. 7.6 g/dL (12.0-16.0); MEAN CORPUSCULAR HEMOGLOBIN 30.9 pg (28.0-32.0); MEAN CORPUSCULAR VOLUME 94.4 fL (81.0-99.0); MEAN PLATELET VOLUME 9.4 fl (7.4-10.4); RED BLOOD CELL COUNT 2.45 mill/uL (4.2-5.4); RED CELL DISTRIBUTION WIDTH 18.1 % (11.6-14.6)
[2019-05-25 06:51] LABS: PLATELET 33 x1000/uL (130-400)
[2019-05-25 07:06] LABS: CHLORIDE 103 mEq/L (98-107)
[2019-05-25 07:24] LABS: LDL CHOLESTEROL 104 mg/dL (5-100)
[2019-05-25 07:25] LABS: HDL CHOLESTEROL 46 mg/dL (40-59)
[2019-05-25 09:17] LABS: CLARITY URINE CLOUDY (CLEAR); COLOR URINE DARK YELLOW (YELLOW); KETONES URINE TRACE (NEGATIVE); LEUKOCYTE ESTERASE URINE TRACE (NEGATIVE); NITRITE URINE NEGATIVE (NEGATIVE); OCCULT BLOOD URINE 3+ (NEGATIVE); PROTEIN URINE TRACE (NEGATIVE); SPECIFIC GRAVITY URINE 1.024 (1.005-1.030)
[2019-05-25 09:39] LABS: *AMPHETAMINES SCREEN URINE NEGATIVE (NEGATIVE); *BARBITURATES SCREEN URINE NEGATIVE (NEGATIVE); *COCAINE SCREEN URINE NEGATIVE (NEGATIVE); METHADONE URINE SCREEN NEGATIVE (NEGATIVE); OPIATES URINE SCREEN PRESUMTIVE POSITIVE (NEGATIVE)
[2019-05-25 09:41] LABS: *BENZODIAZEPINES SCREEN URINE NEGATIVE (NEGATIVE); CANNABINOID URINE SCREEN NEGATIVE (NEGATIVE); PHENCYCLIDINE URINE SCREEN NEGATIVE (NEGATIVE)
[2019-05-25] MEDS ORDERED: FUROSEMIDE 40MG/4ML VIAL IVP NR (12:00)
[2019-05-25 13:39] LABS: PLATELET ESTIMATE MARKEDLY DECREASED
[2019-05-25] MEDS: SODIUM CHLORIDE 0.9% 1,000 ML IV SCH (23:59)
[2019-05-26] VITALS (10 sets, daily range): BP systolic 81–102; BP diastolic 38–64
[2019-05-26 00:19] LABS: MEAN CORPUSCULAR HEMOGLOBIN 30.6 pg (28.0-32.0); MEAN CORPUSCULAR VOLUME 93.5 fL (81.0-99.0); MEAN PLATELET VOLUME 8.7 fl (7.4-10.4); PLATELET 90 x1000/uL (130-400); RED BLOOD CELL COUNT 2.07 mill/uL (4.2-5.4); RED CELL DISTRIBUTION WIDTH 17.8 % (11.6-14.6)
[2019-05-26 00:36] LABS: HEMATOCRIT. 19.3 % (36.0-48.0); HEMOGLOBIN. 6.3 g/dL (12.0-16.0)
[2019-05-26 01:25] LABS: HEMATOCRIT 19.6 % (36.0-48.0); HEMOGLOBIN 6.4 g/dL (12.0-16.0)
[2019-05-26 01:32] LABS: INR 1.1; PROTHROMBIN TIME 11.4 sec (9.6-11.0)
[2019-05-26] MEDS: PIPERACILLIN/TAZ 3.375G PREMIX 50 ML IV SCH ×3 (05:12→22:17)
[2019-05-26 08:18] LABS: PLATELET ESTIMATE DECREASED
[2019-05-26] MEDS ORDERED: FUROSEMIDE 40MG/4ML VIAL IVP SCH (16:00)
[2019-05-26] MEDS: SODIUM CHLORIDE 0.9% 1,000 ML IV SCH (22:22)
[2019-05-26] MEDS ORDERED: ALBUMIN HUMAN 25GM/100ML (25%) IV NR (23:00)
[2019-05-27] VITALS (11 sets, daily range): BP systolic 83–98; BP diastolic 47–62
[2019-05-27 00:35] LABS: INR 1.2; PROTHROMBIN TIME 11.8 sec (9.6-11.0)
[2019-05-27 00:53] LABS: HEMATOCRIT 18.9 % (36.0-48.0); HEMOGLOBIN 6.3 g/dL (12.0-16.0)
[2019-05-27] MEDS: PIPERACILLIN/TAZ 3.375G PREMIX 50 ML IV SCH ×2 (05:26→14:29)
== END 2019-05-27 17:27 | disposition home health service (06) | DRG 754 ==
LOC: ER 12:49 → EDBEDREQ 15:13 → 7WST 16:53 → EDBEDREQ 16:57 → ENRESERV 19:18
PROVIDERS: ADMIT Family Medicine; ATTEND Family Medicine
PROC: 30233R1 Transfusion of Nonautologous Platelets into Peripheral Vein, Percutaneous Approach (ICD-10-PCS; 2019-05-24)
PROC: 0W9G3ZZ Drainage of Peritoneal Cavity, Percutaneous Approach (ICD-10-PCS; principal; 2019-05-26)
PROC: 30233N1 Transfusion of Nonautologous Red Blood Cells into Peripheral Vein, Percutaneous Approach (ICD-10-PCS; 2019-05-26)
DX: C56.9 Malignant neoplasm of unspecified ovary (principal); D61.810 Antineoplastic chemotherapy induced pancytopenia; R18.0 Malignant ascites; C78.02 Secondary malignant neoplasm of left lung; C78.7 Secondary malignant neoplasm of liver and intrahepatic bile duct; N93.9 Abnormal uterine and vaginal bleeding, unspecified
CPT/HCPCS: 36415; 49083; 71045; 74176; 80061; 80305; 83605; 84484; 85014; 85018; 85049; 85384; 86850; 86900; 86920; 93005; 96374; 99285; J1200; J1940; J2270; J2405; J2543; J7030; J7040; J7050; P9016; P9034; P9047